=== PATIENT | male | born 1980 | race Caucasian/White ===

== ENCOUNTER 2017-02-10 07:52 | Emergency (ER) | payer OTHER ==
[2017-02-10 08:06] VITALS: BP 134/74
--- NOTE | 2017-02-10 08:58 | UC ---
Respiratory Complaint HPI - HPI Summary HPI Summary: The patient comes in today for: 1. Cough: Onset: "for a couple of weeks" Palliative/provocative: Nothing makes his cough better or worse except a humidifier and Sudafed. Quality: Hacking. Region: [place]. Severity: 4/10 Time: Constant. Associated symptoms: Chest pain: NOne Dyspnea: None Wheezing: None. Cough production: Present--green. Rhinitis: Green Sinus pressure: Present. Headache: bitemporal. Fever: None. Upper tooth pain: Present. * - History of Current Complaint Chief Complaint: UCRespiratory Stated Complaint: SINUS COMPLAINT Time Seen by Provider: 02/10/17 08:53 Hx Obtained From: Patient - Allergies/Home Medications Allergies/Adverse Reactions: Allergies Allergy/AdvReac Type Severity Reaction Status Date / Time PERTUSSIS VACCINE Allergy Unknown Unknown Uncoded 07/10/15 17:27 Reaction Details PMH/Surg Hx/FS Hx/Imm Hx Previously Healthy: Yes Endocrine History Of: Denies: Diabetes, Thyroid Disease, Hyperthyroidism, Hypothyroidism, Dyslipidemia Cardiovascular History Of: Denies: Cardiac Disorders, Hypertension, Pacemaker/ICD, Myocardial Infarction , Congestive Heart Failure, Atrial Fibrillation, Deep Vein Thrombosis, Bleeding Disorders Respiratory History Of: Denies: COPD, Asthma, Bronchitis, Pneumonia, Pulmonary Embolism GI/ History Of: Denies: Gastroesophageal Reflux, Ulcer, Gastrointestinal Bleed, Gall Bladder Disease, Kidney Stones, Diverticulitis, Renal Disease, Urosepsis Neurological History Of: Denies: TIA, CVA, Dementia, Seizures, Migraine Psychological History Of: Reports: Anxiety - He takes Xanax as needed for this. Denies: Depression, Bipolar Disorder, Schizophrenia, Post Traumatic Stress Disorder Cancer History Of: Denies: Lung Cancer, Colorectal Cancer, Breast Cancer, Prostate Cancer, Cervical Cancer Other History Of: Negative For: HIV, Hepatitis B, Hepatitis C, Anticoagulant Therapy - Surgical History Surgical History: Yes Surgery Procedure, Year, and Place: 2007 REMOVAL OF LEFT METACARPAL MASS, [facility]. 2012 OPEN REDUCTION INTERNAL FIXATION RIGHT CLAVICLE, [facility]. 2014 bilat LEG ENDOLUNINAL CLOSURE, [facility] [place] - Family History Known Family History: Positive: Cardiac Disease, Hypertension, Diabetes - Social History Occupation: Employed Full-time Alcohol Use: Occasionally Substance Use Type: Marijuana Substance Use Comment - Amount & Last Used: sometimes Smoking Status (MU): Former Smoker Type: Cigarettes Amount Used/How Often: 1/2 PPD Length of Time of Smoking/Using Tobacco: 7 YEARS When Did the Patient Quit Smoking/Using Tobacco: 2004 Review of Systems Constitutional: Negative Skin: Negative Eyes: Negative ENT: Negative Respiratory: Cough Cardiovascular: Negative Gastrointestinal: Negative Genitourinary: Negative All Other Systems Reviewed And Are Negative: Yes Physical Exam Triage Information Reviewed: Yes Appearance: Well-Appearing, No Pain Distress, Well-Nourished Vital Signs: Initial Vital Signs Temp 98 F 02/10/17 07:57 Pulse 80 02/10/17 07:57 Resp 18 02/10/17 07:57 BP 134/74 02/10/17 07:57 Pulse Ox 98 02/10/17 07:57 Vital Signs Reviewed: Yes Eyes: Positive: Conjunctiva Clear. Negative: Discharge ENT: Positive: Hearing grossly normal. Negative: Pharyngeal erythema, Nasal congestion, Nasal drainage, TM bulging, TM dull, TM red, Tonsillar swelling, Tonsillar exudate Dental: Negative: Gross Decay/Caries @, Dental Fracture @ Neck: Positive: Supple, Nontender, No Lymphadenopathy. Negative: Nuchal Rigidity Respiratory: Positive: Chest non-tender, Lungs clear, No respiratory distress, No accessory muscle use. Negative: Crackles, Wheezing Cardiovascular: Positive: RRR, No Murmur Abdomen Description: Positive: Nontender, No Organomegaly, Soft. Negative: Distended, Guarding Musculoskeletal: Positive: Strength Intact, ROM Intact, No Edema Neurological: Positive: Alert, Muscle Tone Normal Psychological: Positive: Age Appropriate Behavior, Consolable Skin: Negative: rashes, breakdown UC Diagnostic Evaluation - Laboratory O2 Sat by Pulse Oximetry: 98 Respiratory Course/Dx - Differential Dx/Diagnosis Differential Diagnosis/HQI/PQRI: Bronchitis, Laryngitis, Sinusitis Provider Diagnoses: Sinusitis, bilateral maxillary. Discharge - Discharge Plan Condition: Stable Disposition: HOME Patient Education Materials: Sinusitis (ED) Forms: *Work Release Referrals: Rafael Chiu MD [Primary Care Provider] -
== END 2017-02-10 09:09 | disposition home or self-care (01) ==
LOC: UCEAST 07:52
DX: J32.0 Chronic maxillary sinusitis (principal); Z88.7 Allergy status to serum and vaccine; Z87.891 Personal history of nicotine dependence
CPT/HCPCS: 99212; G0463

== ENCOUNTER 2017-08-04 10:09 | Emergency (ER) | payer OTHER ==
--- NOTE | 2017-08-04 11:55 | ED ---
Abdominal Pain/Male - HPI Summary HPI Summary: Pt here w/ Lt flank pain x 3 days. Mild at onset and started after a night and morning of wretching so initially thought he pulled a muscle (NOTE: wretching was from drinking ETOH at a wedding the night before - does not recall injury to area but can't be sure). He has had reduced appetite since and not eating much - he is able to hold down water but has nausea - no vomiting. Today while at work, pain was worse. Feels like someone is grabbing him here at times. Also reports subjective fever, chills w/ pain radiating around Lt rib cage. Denies urinary frequency, urgency, hematuria, penile/testicular pain, ab pain, chest pain, SOB. He does report pain is worse w/ deep breath -no cough. No previous h/ o medical conditions (including but not limited to urinary tract infections, stones, pancreatitis, pneumonia, etc). He does have a h/o muscle spasms/strains - this does not feel same starting today, but prior to today, thought this was the issue. Drinks ETOH 3+ drinks daily and 500mg caffeine on average daily. Has not tried anything for pain yet - does not take NSAID's. - History of Current Complaint Chief Complaint: UCBackPain Stated Complaint: ABDOMINAL PAIN Time Seen by Provider: 08/04/17 11:34 Hx Obtained From: Patient - Allergies/Home Medications Allergies/Adverse Reactions: Allergies Allergy/AdvReac Type Severity Reaction Status Date / Time PERTUSSIS VACCINE Allergy Unknown Unknown Uncoded 08/04/17 10:16 Reaction Details PMH/Surg Hx/FS Hx/Imm Hx Previously Healthy: Yes Endocrine/Hematology History: Denies: Hx Anticoagulant Therapy, Hx Diabetes, Hx Thyroid Disease Cardiovascular History: Reports: Hx Peripheral Vascular Disease - VARICOSE VEIN RIGHT LEG Denies: Hx Congestive Heart Failure, Hx Deep Vein Thrombosis, Hx Hypertension , Hx Myocardial Infarction, Hx Pacemaker/ICD Respiratory History: Denies: Hx Asthma, Hx Chronic Obstructive Pulmonary Disease (COPD), Hx Lung Cancer, Hx Pneumonia, Hx Pulmonary Embolism GI History: Reports: Hx Gastroesophageal Reflux Disease - OCCASIONAL Denies: Hx Gall Bladder Disease, Hx Gastrointestinal Bleed, Hx Ulcer, Hx Urosepsis History: Denies: Hx Kidney Infection, Hx Kidney Stones, Hx Renal Disease Musculoskeletal History: Reports: Hx Bursitis - RIGHT SHOULDER, Other Musculoskeletal History - OCCASIONAL MUSCLE SPASMS Sensory History: Reports: Hx Contacts or Glasses - GLASSES Denies: Hx Hearing Aid Opthamlomology History: Reports: Hx Contacts or Glasses - GLASSES Neurological History: Denies: Hx Dementia, Hx Migraine, Hx Seizures, Hx Transient Ischemic Attacks (TIA) Psychiatric History: Reports: Hx Anxiety - He takes Xanax as needed for this. Denies: Hx Depression, Hx Schizophrenia, Hx Bipolar Disorder, Hx Substance Abuse - Cancer History Cancer Type, Location and Year: Chronic muscle spasms in his back - Surgical History Surgery Procedure, Year, and Place: 2007 REMOVAL OF LEFT METACARPAL MASS, [facility]. 2012 OPEN REDUCTION INTERNAL FIXATION RIGHT CLAVICLE, [facility]. 2013 bilat LEG ENDOLUNINAL CLOSURE, [facility] Hx Anesthesia Reactions: No Infectious Disease History: No Infectious Disease History: Denies: Hx Clostridium Difficile, Hx Hepatitis, Hx Human Immunodeficiency Virus (HIV), Hx of Known/Suspected MRSA, Hx Shingles, Hx Tuberculosis, Hx Known/ Suspected VRE, Hx Known/Suspected VRSA, History Other Infectious Disease, Traveled Outside the [place] in Last 30 Days - Family History Known Family History: Positive: Cardiac Disease, Hypertension, Diabetes - Social History Occupation: Employed Full-time Lives: With Family Alcohol Use: Daily - 3+ drinks daily Substance Use Type: Reports: Marijuana - recreationally and for pain control of muscle spasms when they occur Substance Use Comment - Amount & Last Used: sometimes Hx Tobacco Use: Yes - quit 14 years ago Smoking Status (MU): Former Smoker Type: Cigarettes Amount Used/How Often: 1/2 PPD Length of Time of Smoking/Using Tobacco: 7 YEARS Review of Systems Constitutional: Other - see HPI Cardiovascular: Negative Respiratory: Negative Gastrointestinal: Other - see HPI Positive: see HPI Musculoskeletal: Other - see HPI Skin: Negative Neurological: Negative Psychological: Normal All Other Systems Reviewed And Are Negative: Yes Physical Exam Triage Information Reviewed: Yes Vital Signs On Initial Exam: Initial Vitals Temp Pulse Resp BP Pulse Ox 98.0 F 81 16 128/93 99 08/04/17 10:17 08/04/17 10:17 08/04/17 10:17 08/04/17 10:08/04/17 10:17 Vital Signs Reviewed: Yes Appearance: Positive: Well-Appearing, No Pain Distress - at rest, Well-Nourished Skin: Positive: Warm, Dry Head/Face: Positive: Normal Head/Face Inspection Eyes: Positive: Normal, EOMI, Conjunctiva Clear - anicertic sclera ENT: Positive: Hearing grossly normal Respiratory/Lung Sounds: Positive: Clear to Auscultation, Breath Sounds Present , Other - AP and lateral compression of Lt ribs triggers pain - no crepitus appreciated - pt reports, "feels deeper" - no flail chest. Negative: Rales, Rhonchi, Subcutaneous Emphysema, Tracheal Deviation, Wheezes Cardiovascular: Positive: Normal, RRR Abdomen Description: Positive: No Organomegaly, Soft, CVA Tenderness (R) - Rt > Lt, CVA Tenderness (L), Other: - LLQ TTP > RLQ TTP. Negative: Distended, Guarding, McBurney's Point Tenderness, Pulsatile Mass Bowel Sounds: Positive: Present Musculoskeletal: Positive: Normal, Strength/ROM Intact Neurological: Positive: Normal, Sensory/Motor Intact, Alert, Oriented to Person Place, Time, CN Intact II-III Psychiatric: Positive: Normal Diagnostics - Vital Signs Vital Signs Temp Pulse Resp BP Pulse Ox 08/04/17 10:17 98.0 F 81 16 128/93 99 - Laboratory Lab Statement: Any lab studies that have been ordered have been reviewed, and results considered in the medical decision making process. Abdominal Pain Fem Course/Dx - Diagnoses Provider Diagnoses: Left flank pain Discharge - Discharge Plan Condition: Stable Disposition: OTHER Discharge Disposition Comment: Transfer to [facility] [place] [facility] - pt declined ambulance Patient Education Materials: Flank Pain (ED) Additional Instructions: It is advised that you go directly to [facility] for flank pain, abdominal pain, fever/chills and nausea This could be a kidney stone with or without infection, pancreatitis, pneumonia , fracture or other condition(s) Do not eat or drink until seen by medical provider
[2017-08-04 12:22] VITALS: BP 147/83
== END 2017-08-04 12:05 ==
LOC: UCEAST 10:09
DX: R10.32 Left lower quadrant pain (principal); I73.9 Peripheral vascular disease, unspecified; I83.91 Asymptomatic varicose veins of right lower extremity; K21.9 Gastro-esophageal reflux disease without esophagitis; F41.9 Anxiety disorder, unspecified; Z88.7 Allergy status to serum and vaccine; F12.90 Cannabis use, unspecified, uncomplicated; Z87.891 Personal history of nicotine dependence
CPT/HCPCS: 81003; 99212; G0463

== ENCOUNTER 2017-08-04 12:31 | Emergency (ER) | payer OTHER ==
[2017-08-04 14:13] LABS: Hematocrit 44 % (42-52); Hemoglobin 14.8 g/dl (14.0-18.0); Mean Corpuscular HGB Conc 33 g/dl (31-36); Mean Corpuscular Hemoglobin 30 pg (27-31); Mean Corpuscular Volume 88 fL (80-94); Mean Platelet Volume 9 um3 (7.4-10.4); Red Blood Count 5.01 10^6/ul (4.0-5.4); Red Cell Distribution Width 13 % (10.5-15); White Blood Count 10.1 10^3/ul (3.5-10.8)
[2017-08-04 14:28] LABS: Albumin 4.4 g/dL (3.2-5.2); BUN/Creatinine Ratio 12.4 (8-20); Calcium 9.3 mg/dL (8.6-10.3); EGFR African American 93.9 (>60); Globulin 2.4 g/dL (2-4); Potassium 4.2 mmol/L (3.5-5.0); Total Bilirubin 0.6 mg/dL (0.2-1.0); Total Protein 6.8 g/dL (6.4-8.9)
--- NOTE | 2017-08-04 14:43 | ED ---
GI/ HPI - HPI Summary HPI Summary: 36M presents with left flank pain x 3 days. He denies any injury. Has never had this pain for. admits to nausea but denies any vomiting, diarrhea, or constipation. He has decreased appetite. Today while at work, pain was worse. Also reports subjective fever. Denies urinary frequency, urgency, hematuria, penile/testicular pain, chest pain, SOB. He states pain wraps around to the LUQ. no previous abdominal surgeries. no cough,. He does have a history of muscle spasms but this does not feel as such. No back pain. no loss of bowel or bladder or saddle anaesthesia. - History of Current Complaint Chief Complaint: EDFlankPain Time Seen by Provider: 08/04/17 13:56 Stated Complaint: LEFT FLANK PAIN COMING FROM CC Pain Intensity: 5 - Allergy/Home Medications Allergies/Adverse Reactions: Allergies Allergy/AdvReac Type Severity Reaction Status Date / Time PERTUSSIS VACCINE Allergy Unknown Unknown Uncoded 08/04/17 10:16 Reaction Details PMH/Surg Hx/FS Hx/Imm Hx Endocrine/Hematology History: Denies: Hx Anticoagulant Therapy, Hx Diabetes, Hx Thyroid Disease Cardiovascular History: Reports: Hx Peripheral Vascular Disease - VARICOSE VEIN RIGHT LEG Denies: Hx Congestive Heart Failure, Hx Deep Vein Thrombosis, Hx Hypertension , Hx Myocardial Infarction, Hx Pacemaker/ICD Respiratory History: Denies: Hx Asthma, Hx Chronic Obstructive Pulmonary Disease (COPD), Hx Lung Cancer, Hx Pneumonia, Hx Pulmonary Embolism GI History: Reports: Hx Gastroesophageal Reflux Disease - OCCASIONAL Denies: Hx Gall Bladder Disease, Hx Gastrointestinal Bleed, Hx Ulcer, Hx Urosepsis History: Denies: Hx Kidney Infection, Hx Kidney Stones, Hx Renal Disease Musculoskeletal History: Reports: Hx Bursitis - RIGHT SHOULDER, Other Musculoskeletal History - OCCASIONAL MUSCLE SPASMS Sensory History: Reports: Hx Contacts or Glasses - GLASSES Denies: Hx Hearing Aid Opthamlomology History: Reports: Hx Contacts or Glasses - GLASSES Neurological History: Denies: Hx Dementia, Hx Migraine, Hx Seizures, Hx Transient Ischemic Attacks (TIA) Psychiatric History: Reports: Hx Anxiety - He takes Xanax as needed for this. Denies: Hx Depression, Hx Schizophrenia, Hx Bipolar Disorder, Hx Substance Abuse - Cancer History Cancer Type, Location and Year: Chronic muscle spasms in his back - Surgical History Surgery Procedure, Year, and Place: 2007 REMOVAL OF LEFT METACARPAL MASS, [facility]. 2012 OPEN REDUCTION INTERNAL FIXATION RIGHT CLAVICLE, [facility]. 2014 bilat LEG ENDOLUNINAL CLOSURE, [facility] Hx Anesthesia Reactions: No Infectious Disease History: No Infectious Disease History: Denies: Hx Clostridium Difficile, Hx Hepatitis, Hx Human Immunodeficiency Virus (HIV), Hx of Known/Suspected MRSA, Hx Shingles, Hx Tuberculosis, Hx Known/ Suspected VRE, Hx Known/Suspected VRSA, History Other Infectious Disease, Traveled Outside the [place] in Last 30 Days - Family History Known Family History: Positive: Cardiac Disease, Hypertension, Diabetes - Social History Alcohol Use: Daily Substance Use Type: Reports: Marijuana Substance Use Comment - Amount & Last Used: sometimes Hx Tobacco Use: Yes - quit 14 years ago Smoking Status (MU): Former Smoker Type: Cigarettes Amount Used/How Often: 1/2 PPD Length of Time of Smoking/Using Tobacco: 7 YEARS Review of Systems Positive: Fever Negative: Chest Pain Negative: Shortness Of Breath Positive: Abdominal Pain, Nausea. Negative: Vomiting, Diarrhea Positive: flank pain. Negative: dysuria, discharge, frequency All Other Systems Reviewed And Are Negative: Yes Physical Exam Triage Information Reviewed: Yes Vital Signs On Initial Exam: Initial Vitals Temp Pulse Resp BP Pulse Ox 98.1 F 73 17 158/91 98 08/04/17 12:35 08/04/17 12:35 08/04/17 12:35 08/04/17 12:35 08/04/17 12:35 Vital Signs Reviewed: Yes Appearance: Positive: Well-Appearing Skin: Positive: Warm, Dry Head/Face: Positive: Normal Head/Face Inspection Eyes: Positive: Normal, EOMI, ESTELA, Conjunctiva Clear ENT: Positive: Normal ENT inspection, Pharynx normal, TMs normal Respiratory/Lung Sounds: Positive: Clear to Auscultation, Breath Sounds Present Cardiovascular: Positive: Normal, RRR Abdomen Description: Positive: Soft, CVA Tenderness (L), Other: - mild tenderness LUQ Bowel Sounds: Positive: Present - [place] Coma Scale Coma Scale Total: 15 Diagnostics - Vital Signs Vital Signs Temp Pulse Resp BP Pulse Ox 08/04/17 12:35 98.1 F 73 17 158/91 98 - Laboratory Lab Results: Lab Results 08/04/17 08/04/17 Range/Units 14:01 14:01 WBC 10.1 (3.5-10.8) 10^3/ul RBC 5.01 (4.0-5.4) 10^6/ul Hgb 14.8 (14.0-18.0) g/dl Hct 44 (42-52) % MCV 88 (80-94) fL MCH 30 (27-31) pg MCHC 33 (31-36) g/dl RDW 13 (10.5-15) % Plt Count 298 (150-450) 10^3/ul MPV 9 (7.4-10.4) um3 Neut % (Auto) 55.8 (38-83) % Lymph % (Auto) 31.5 (25-47) % [place] % (Auto) 9.0 (1-9) % Eos % (Auto) 3.1 (0-6) % Baso % (Auto) 0.6 (0-2) % Absolute Neuts (auto) 5.7 (1.5-7.7) 10^3/ul Absolute Lymphs (auto) 3.2 (1.0-4.8) 10^3/ul Absolute Monos (auto) 0.9 H (0-0.8) 10^3/ul Absolute Eos (auto) 0.3 (0-0.6) 10^3/ul Absolute Basos (auto) 0.1 (0-0.2) 10^3/ul Absolute Nucleated RBC 0 10^3/ul Nucleated RBC % 0 Sodium 137 (133-145) mmol/L Potassium 4.2 (3.5-5.0) mmol/L Chloride 103 (101-111) mmol/L Carbon Dioxide 28 (22-32) mmol/L Anion Gap 6 (2-11) mmol/L BUN 14 (6-24) mg/dL Creatinine 1.13 (0.67-1.17) mg/dL Est GFR ( Amer) 93.9 (>60) Est GFR (Non-Af Amer) 73.0 (>60) BUN/Creatinine Ratio 12.4 (8-20) Glucose 89 (70-100) mg/dL Calcium 9.3 (8.6-10.3) mg/dL Total Bilirubin 0.60 (0.2-1.0) mg/dL AST 23 (13-39) U/L ALT 27 (7-52) U/L Alkaline Phosphatase 58 (34-104) U/L C-React Prot High Sens 1.52 mg/L Total Protein 6.8 (6.4-8.9) g/dL Albumin 4.4 (3.2-5.2) g/dL Globulin 2.4 (2-4) g/dL Albumin/Globulin Ratio 1.8 (1-3) Lipase 19 (11.0-82.0) U/L Result Diagrams: 08/04/17 14:01 08/04/17 14:01 Lab Statement: Any lab studies that have been ordered have been reviewed, and results considered in the medical decision making process. - CT abd CT Interpretation: No Acute Changes CT Interpretation Completed By: Radiologist GENNARO Course/Dx - Course Course Of Treatment: 36M presents with left flank pain x 3 days. He denies any injury. Has never had this pain for. admits to nausea but denies any vomiting, diarrhea, or constipation. He has decreased appetite. Today while at work, pain was worse. Also reports subjective fever. Denies urinary frequency, urgency , hematuria, penile/testicular pain, chest pain, SOB. He states pain wraps around to the LUQ. no previous abdominal surgeries. no cough,. He does have a history of muscle spasms but this does not feel as such. No back pain. no loss of bowel or bladder or saddle anaesthesia. on exam tender in LUQ mildly, pos CVA tenderness. Ct abdomen normal. labs normal wbc, crp and urine. explained likely muscular in nature but could be gerd. patient understands and agrees with plan. - Diagnoses Differential Diagnoses - Male: Esophagitis/Gastritis, Ureteral Calculi, Urinary Tract Infection, Other - gerd Provider Diagnoses: Flank pain Discharge - Discharge Plan Condition: Good Disposition: HOME Patient Education Materials: Flank Pain (ED) Referrals: Rafael Chiu MD [Primary Care Provider] - Additional Instructions: Take Tylenol every 6 hours as needed for pain Apply ice or heat Follow up with primary care physician within 5 days Return to ED if develop any new or worsening symptoms
[2017-08-04 14:47] LABS: Urine Bilirubin Negative (Negative); Urine Glucose Negative (Negative); Urine Nitrite Negative (Negative)
--- NOTE | 2017-08-04 15:16 | RAD ---
Indication: Left flank pain. CT of the abdomen and pelvis was performed without oral or IV contrast administration. Coronal and sagittal reconstructed images were obtained. Lung bases demonstrate no pleural fluid, nodules or masses. Heart is of normal size without evidence of pericardial effusion. Liver is normal in size. No focal lesions or intrahepatic ductal dilatation is noted. The gallbladder demonstrates no calcified gallstones. No pericholecystic fluid or wall thickening is noted. The spleen is normal in size. The pancreas demonstrates no mass or pancreatic duct dilatation. The common duct is not dilated. No adrenal lesions are noted. The kidneys demonstrate no hydronephrosis in either kidney. No retroperitoneal lymphadenopathy is noted. CT of the pelvis demonstrates no retroperitoneal or pelvic lymphadenopathy. The uterus and ovaries are unremarkable. Prostate is unremarkable. No hernias are identified. Appendix is visualized and is normal. The bony structures are grossly unremarkable. IMPRESSION: No evidence of obstructive uropathy is noted.
[2017-08-04 15:49] VITALS: BP 115/85
== END 2017-08-04 15:48 | disposition home or self-care (01) ==
LOC: ED 12:31
DX: R10.84 Generalized abdominal pain (principal); R50.9 Fever, unspecified; R10.9 Unspecified abdominal pain; R11.0 Nausea; Z87.891 Personal history of nicotine dependence
CPT/HCPCS: 36415; 74176; 80053; 81003; 83690; 85025; 86141; 99282